=== PATIENT | male | born 1995 | race American Indian/Alaskan Native ===

== ENCOUNTER 2021-06-03 10:44 | Emergency (ER) | payer OTHER ==
[2021-06-06 16:19] VITALS: BP 101/52
== END 2021-06-06 18:19 ==
LOC: EDBD → ED 10:44 → EEVIPCON 10:44 → ED 06-06 18:19
DX: F23 Brief psychotic disorder (principal); Z03.818 Encounter for observation for suspected exposure to other biological agents ruled out; F14.10 Cocaine abuse, uncomplicated; F20.9 Schizophrenia, unspecified; F31.9 Bipolar disorder, unspecified
CPT/HCPCS: 36415; 71045; 80048; 80307; 81001; 84484; 85025; 85027; 93005; 96372; 99285; J2270; J2405; J3486; Q0177; U0003; 80320; G0480